=== PATIENT | female | born 1985 | race Caucasian/White ===

== ENCOUNTER 2019-08-02 11:25 | Emergency (ER) | payer OTHER, SELFPAY ==
[2019-08-02 11:40] VITALS: BP 152/101; PULSE 92; RESP 18; TEMP 36.1; O2SAT 100
[2019-08-02 11:54] VITALS: BP 137/88; PULSE 89; RESP 18; O2SAT 100
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
[2019-08-02 13:38] VITALS: BP 142/78; PULSE 77; RESP 18; O2SAT 98
== END 2019-08-02 13:39 | disposition home or self-care (01) ==
PROVIDERS: Emergency Provider Emergency Medicine
DX: M79.2 Neuralgia and neuritis, unspecified (principal); R03.0 Elevated blood-pressure reading, without diagnosis of hypertension
CPT/HCPCS: 99281